=== PATIENT | male | born 1950 | race Caucasian/White ===

== ENCOUNTER 2021-01-27 18:17 | Emergency (ER) | payer MEDICARE, OTHER ==
[~2021-01-27 18:17] MED LIST: TAMIFLU75 MG PO; ZOFRAN4 MG PO
[2021-01-27 19:54] LABS: RED BLOOD COUNT 3.68 M/UL (4.20-5.50); WHITE BLOOD COUNT 5.3 K/UL (4.5-11.0)
== END 2021-01-27 21:38 | disposition home or self-care (01) ==
LOC: ER1 18:17
PROVIDERS: Emergency Medicine
DX: M13.832 Other specified arthritis, left wrist (principal); M13.842 Other specified arthritis, left hand; N18.9 Chronic kidney disease, unspecified; Z86.73 Personal history of transient ischemic attack (TIA), and cerebral infarction without residual deficits
CPT/HCPCS: 73110; 73130; 80048; 85025; 85652; 86140; 96374; 96375; 99283; J1100; J1885

== ENCOUNTER → 2021-07-19 | Outpatient (CLI) | payer MEDICARE, OTHER | LOC: HEART CORB 11:36 | DX: I48.21 Permanent atrial fibrillation (principal); I49.5 Sick sinus syndrome; R00.1 Bradycardia, unspecified ==

== ENCOUNTER 2021-08-03 22:09 | Emergency (ER) | payer MEDICARE, OTHER ==
[2021-08-03 23:47] LABS: HEMOGLOBIN 10.8 gm/dl (14.0-17.5); RED BLOOD COUNT 3.75 M/UL (4.20-5.50); WHITE BLOOD COUNT 5.9 K/UL (4.5-11.0)
[2021-08-04] MEDS ORDERED: COLCHICINE 0.60.6 MG PO (01:53)
== END 2021-08-04 02:11 | disposition home or self-care (01) ==
LOC: ER1 22:09
PROVIDERS: Physician Assistant
DX: M10.9 Gout, unspecified (principal); I10 Essential (primary) hypertension
CPT/HCPCS: 73610; 73630; 80053; 84550; 85025; 85652; 86140; 99283